=== PATIENT | female | born 1950 | race Caucasian/White ===

== ENCOUNTER 2024-02-07 17:39 | Emergency (ER) | payer MEDICARE ==
[~2024-02-07] VITALS: Ht 157.5 cm; Wt 59.0 kg
[2024-02-07 17:41] VITALS: O2SAT 100
[2024-02-07] MEDS ORDERED: ACET-2708 MT (19:56)
[2024-02-07] MEDS: ACETAMINOPHEN 325MG TABLET PO ONE (20:09)
[2024-02-07 20:10] VITALS: BP 102/59; PULSE 60; RESP 16; TEMP 36.50292; O2SAT 97
== END 2024-02-07 20:11 | disposition home or self-care (01) ==
LOC: ER 17:50
DX: S09.90XA Unspecified injury of head, initial encounter (principal); I10 Essential (primary) hypertension; E03.9 Hypothyroidism, unspecified; X58.XXXA Exposure to other specified factors, initial encounter; Y93.89 Activity, other specified; Y92.89 Other specified places as the place of occurrence of the external cause; Y99.8 Other external cause status
CPT/HCPCS: 73030; 99284